=== PATIENT | female | born 1975 | race Caucasian/White ===

== ENCOUNTER 2023-01-15 12:39 | Outpatient (CLI) | payer OTHER, SELFPAY ==
[2023-01-15 13:11] LABS: Hemoglobin A1C 4.7 % (<5.7)
[2023-01-15 13:31] LABS: Free T4 Free Thyroxine 0.95 ng/mL (0.78-2.19)
[2023-01-20 03:58] LABS: FSH 130.3 mIU/mL (***); Prolactin 4.3 ng/mL (***)
[2023-01-20 08:47] LABS: Testosterone Total 11 ng/dL (2-45)
[2023-01-22 21:31] LABS: Estradiol, Ultrasensitive 11 pg/mL
== END 2023-01-15 12:40 | disposition home or self-care (01) ==
LOC: ANHLAB 12:43
PROVIDERS: Visit Provider Obstetrics & Gynecology
DX: R53.83 Other fatigue (principal)
CPT/HCPCS: 36415; 82670; 83001; 83036; 84146; 84403; 84439; 84443

== ENCOUNTER 2023-01-21 11:50 | Outpatient (CLI) | payer OTHER, SELFPAY ==
[2023-01-25 03:38] LABS: CA-125 6 U/mL (<35)
[2023-01-26 04:54] LABS: Triiodothyronine T3 Free 3.7 pg/mL (2.3-4.2)
== END 2023-01-21 11:51 | disposition home or self-care (01) ==
LOC: ANHLAB 11:54
PROVIDERS: Referring Provider Student in an Organized Health Care Education/Training Program; Visit Provider Obstetrics & Gynecology
DX: R53.83 Other fatigue (principal); R79.89 Other specified abnormal findings of blood chemistry
CPT/HCPCS: 36415; 84481; 86304

== ENCOUNTER 2023-03-15 08:07 | Outpatient (CLI) | payer OTHER, SELFPAY ==
[2023-03-15 10:25] LABS: Hematocrit 41.2 % (37.0-47.0); Hemoglobin 13.9 g/dL (12.0-15.0); Mean Corpuscular HGB Conc 33.7 g/dl (32-36); Mean Corpuscular Hemoglobin 32.4 pg (26-34); Mean Platelet Volume 9.8 fl (7.4-10.4); Platelet Count Result 211 k/mm3 (150-375); Red Blood Count 4.29 M/mm3 (4.2-5.4); Red Cell Distribution Width 12.3 % (11.5-14.5); White Blood Count 6.5 K/mm3 (4.5-10.0)
== END 2023-03-15 08:08 | disposition home or self-care (01) ==
PROVIDERS: Visit Provider Obstetrics & Gynecology
DX: D25.9 Leiomyoma of uterus, unspecified (principal); Z01.818 Encounter for other preprocedural examination
CPT/HCPCS: 36415; 85027; 86850; 86900; 86901

== ENCOUNTER 2023-03-17 00:47 | Day surgery (SDC) | payer OTHER, SELFPAY ==
--- NOTE | 2023-03-14 10:53 | PC.NURSE ---
Report to the Outpatient Waiting Room, entrance under the green pavilion located off [facility], at time __0730 on date 03/17/23 . Planned Procedure Time: _929 . Time changes happen often and if your time is changed the preop area will call you the afternoon before. - You and your visitor will be asked to self-screen and do not enter if you have any COVID symptoms. - A mask is optional within the hospital at this time. Patients may have clear liquids (water, carbonated beverages, clear teas, apple juice) until 3 hours prior to surgery with a maximum of 20 ounces. - No food from midnight until time of surgery - Infants may have breast milk until 4 hours before surgery, formula 6 hours prior to surgery. - Children will be allowed to drink immediately following surgery. If applicable, please bring a bottle or sippy cup to assist with drinking. Juice, water, soda, and popsicles are readily available. For infants on formula, please bring formula the day of surgery. Pacifiers are allowed. Take the following medications with a SIP of water the morning of surgery: NONE DO NOT STOP ANY OF YOUR OTHER PRESCRIPTION MEDICATIONS PRIOR TO SURGERY ?EXCEPT THE FOLLOWING Medications to discontinue per physician NONE Date to take last dose Please no make-up, nail chinese, hairspray, perfume, deodorant, or body powder the day of surgery. No jewelry (including any body piercings) or valuables the day of surgery, leave them at home. Please take a shower or bath the night before, or the morning of, surgery with an antibacterial soap. Wear comfortable, loose fitting clothing. Children are encouraged to wear pajamas. - Jewelry must be removed prior to entering the operating room. Rings and piercings that are not removed may be cut off. - The hospital will not accept responsibility for valuables. - Please leave all valuables, including medications, at home the day of surgery. If you are going home after surgery, a licensed ice delivery driver must drive you home. - NO public transportation without another adult if you receive anesthesia. - We recommend that an adult stay with you for 24 hours following discharge. - We also recommend that you do not drive, make important decision, drink alcoholic beverages, or take any drugs that were not prescribed by your health care provider for at least 24 hours after your discharge time. Follow any additional instructions given to you from your surgeon. If you or anyone in your household have experienced Covid symptoms in the past week, please notify your surgeon or the nurse liaison at the phone number below for possible testing. Telephone instructions given to ___PATIENT and asked if any additional questions and then verbalized understanding. Patient advised to call surgeon office or pre surgery nurse liaison [phone] if any additional questions.
[2023-03-14 11:40] VITALS: BMI 26.5
--- NOTE | 2023-03-14 16:28 | PM.IMHP ---
H&P: HPI History of Present Illness Date/Time: 03/14/23 16:28 47-year-old 2 para 2000 female presents with complaints of pelvic pain as well as hip and lower back pain. Also states that these are worse with activity and also during those times feels pressure and falling other tissue. the symptoms do occur mostly while she is at work where she does a lot of lifting and carrying. Pelvic ultrasound reveals mildly enlarged uterus and we also 2 left ovarian cysts of for an 3cm. These do appear to be simple cysts and no other significant abnormalities are noted though her uterus is generally enlarged consistent with early fibroid changes though there were no specific fibroids noted. She has had a history of endometrial ablation which has worked reasonably well for her for a period of time but she is beginning have some bleeding now and again the significant amount of discomfort. We have discussed potential medical management though she declines and desires definitive therapy in the form of hysterectomy with bilateral salpingectomy and right ovarian preservation. She does have cysts on the left ovary and significant amount of discomfort on the left side and therefore desires to have the left ovary removed. Chief Complaint: Pelvic pain Review of Systems Review of Systems: All systems reviewed & are unremarkable except as noted in HPI and below PMFSH Past Medical History Medical History Screening mammogram, encounter for Surgical History Surgical History H/O colonoscopy x 2 History of gynecologic surgery (05/12/17) hscope d&c/Novasure endometrial ablation--secretory phase endometrium History of tubal ligation Family History Family History Mother Hypertension Cerebrovascular accident Alcoholism Father Malignant neoplasm of lung Grandparent Acute myocardial infarction maternal grandmother Social History Social History Smoking status: Never smoker Tobacco type: cigarettes Alcohol intake: current Alcohol use details: 5 x year Substance use: current Substance use type: marijuana Other substance usage details: daily Last use: 03/14/23 Living arrangements: with family Additional living arrangements comments: Occupation/Education: occupation 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 Gender identity (if verbalized by the patient): Female Sexual Orientation (if Verbalized by the Patient): Straight or Heterosexual Spiritual care concerns: No Meds Home Medications and Allergies Home Medications Medication Instructions Recorded Confirmed Type No Home Medications 03/14/23 03/14/23 History Allergies Allergy/AdvReac Type Severity Reaction Status Date / Time No Known Allergies Allergy Verified 03/14/23 10:40 Exam Const: General: cooperative and healthy appearing Resp: Effort & Inspection: normal respiratory effort Auscultation: clear to auscultation bilaterally Cardio: Rate: regular rate Rhythm: regular rhythm GI: Inspection: normal to inspection Auscultation: normal bowel sounds : External Female Exam: normal external appearance Speculum Exam - Vagina: normal appearance of the vagina Speculum Exam - Cervix: normal appearance of the cervix Bimanual exam- vagina & uterus: enlarged ( mildly enlarged) Bimanual Exam- Adnexa, other: normal adnexae Assessment and Plan Assessment and plan (1) Pelvic pain: Code(s): R10.2 - Pelvic and perineal pain Status: Acute (2) Uterine fibroid: Code(s): D25.9 - Leiomyoma of uterus, unspecified Status: Acute (3) Adnexal cyst: Code(s): N94.9 - Unspecified condition associated with female genital organs and menstrual cycle Status: Acute
[2023-03-17] VITALS (12 sets, daily range): BP systolic 103–123; BP diastolic 60–82; PULSE 62–84; RESP 12–18; TEMP 36.5–37.1; O2SAT 89–100
--- NOTE | 2023-03-17 07:34 | P.PNAN_ITS ---
Anes - Initial Pre Proc Eval Procedure: Operation Date: 03/17/23 10:30 Proposed Procedures p Robotic Assisted Total Laparoscopic Hysterectomy with Bilateral Salpingectomy, Left Oophorectomy - Tiburcio Chan MD Date/Time: 03/17/23 07:34 Surgeon: Tiburcio Chan MD Pre Op Diagnosis: uterine fibroid, pelvic pain Patient Data Age: 47 Gender: F Height: 1.57 m Weight: 65.8 kg Allergies Allergy/AdvReac Type Severity Reaction Status Date / Time No Known Allergies Allergy Verified 03/17/23 08:56 Home Medications Medication Instructions Recorded Confirmed Type No Home Medications 03/14/23 03/14/23 History Patient hx anesthesia problems: none Family hx anesthesia problems: none Results Review: All pre-operative results and documents have been reviewed as part of the pre- operative evaluation. [facility] Past Medical History Medical History (Updated 03/17/23 @ 07:35 by Faisal Pavon MD) Screening mammogram, encounter for Uterine fibroid Surgical History Surgical History H/O colonoscopy x 2 History of gynecologic surgery (05/12/17) hscope d&c/Novasure endometrial ablation--secretory phase endometrium History of tubal ligation Family History Family History Mother Hypertension Cerebrovascular accident Alcoholism Father Malignant neoplasm of lung Grandparent Acute myocardial infarction maternal grandmother Social History Social History Smoking status: Never smoker Tobacco type: cigarettes Alcohol intake: current Alcohol use details: 5 x year Substance use: current Substance use type: marijuana Other substance usage details: daily Last use: 03/14/23 Living arrangements: with family Additional living arrangements comments: Occupation/Education: occupation 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 Gender identity (if verbalized by the patient): Female Sexual Orientation (if Verbalized by the Patient): Straight or Heterosexual Spiritual care concerns: No Anes - Eval Final PreProcedure Day of Procedure 03/17/23 07:34 Patient weight: overweight Heart: regular rate and rhythm Lungs: clear to auscultation and normal air movement Airway: Mallampati scale class II Neurological: alert and oriented Last oral intake: >/= 8 hours ASA classification: II Emergent: no Anesthetic plan: proceed Anesthesia type and monitoring: general ETT Results Review: All pre-operative results and documents have been reviewed as part of the pre- operative evaluation. Informed Consent: The patient's anesthetic plan and its attendant risks and benefits were discussed with the patient/family/POA. Questions were solicited and answers provided to the satisfaction of the patient/family/POA.
[2023-03-17] MEDS: ACETAMINOPHEN 500 MG TABLET 1000 MG PO (09:05)
[2023-03-17] MEDS: KETOROLAC 15 MG/ML VIAL (*BKC) IV PUSH (09:21)
[2023-03-17] MEDS: LACTATED RINGERS 1,000 ML 30 ML IV CONT ×2 (09:22→12:19)
[2023-03-17] MEDS: SCOPOLAMINE 1.5 MG PATCH TRANSDERM (09:24)
--- NOTE | 2023-03-17 09:49 | WPDHPUPDATE1 ---
History and Physical Update Update Date/Time: 03/17/23 09:49 History and Physical has been reviewed, including an updated exam of the patient. There are NO changes in the patient's condition. Risks, benefits, and alternatives have been discussed and questions answered. Patient agrees to proceed with procedure.
[2023-03-17] MEDS: ceFAZolin 2 GM/D5W 50 ML 2 GM/50 ML BAG IVPB (10:27)
--- NOTE | 2023-03-17 11:55 | P.OP_ITS ---
Procedure Note - Detailed Date of Procedure 03/17/23 Pre-op Diagnosis 1. Pelvic pain 2. Uterine fibroid 3. Left adnexal mass Post-op Diagnosis Same Procedure Performed 1. Robotic assisted total laparoscopic hysterectomy 2. Right salpingectomy 3. Left salpingo oophorectomy Surgeon Tiburcio Chan MD Anesthesia General Findings 1. Enlarged globular uterus 2. Evidence of prior partial bilateral salpingectomy 3. Left ovarian cysts x2 Description of Procedure Patient prepped and draped usual manner for this procedure. Cervical instruments were placed for uterine mobility throughout the case. Abdominal trocar sites were then marked and trocars were placed under direct visualization. The instruments were then attached to the Adpoints system and instruments were also placed under direct visualization. At this point the surgeon moved to the console and findings were noted as above. The left infundibulopelvic ligament cauterized and cut to free up the vascularity of the left ovary. The left ovary was then removed with an Endo- Catch bag with the remaining left fallopian tube as well. Right mesial salpinx was cauterized and cut to allow the right fallopian tube to be removed. Round ligament was as cauterized and cut bilaterally and bladder flap developed without difficulty. Right utero-ovarian ligament was cauterized and cut to free the ovary from the uterus. Posterior leaf the broad ligament then incised to allow the uterine vessels be skeletonized, once this was done they were cauterized and cut without difficulty. At this point the anterior colpotomy incision was made carried circumferentially to separate the cervix from the vagi na. Uterus was delivered into the vagina. Cuff was then closed using V lock suture from the right angle to the midline in the left angle midline with good approximation hemostasis noted. Irrigation was undertaken with no significant bleeding. Naomi was then placed empirically over the vaginal cuff and the other edges. Gas was allowed to escape incisions approximated using 4-0 Monocryl after the trocars removed and the patient was sent to recovery room in stable condition. Estimated Blood Loss 100 Drains No Packing No Pathology Yes Complications No immediate complications Condition Stable Disposition PACU [facility] Billing Surgery - Charge Forward: Surgery Billing
[2023-03-17] MEDS: fentaNYL CITRATE INJ (*CRX) 100 MCG/2 ML VIAL 25 MCG IV PUSH ×2 (12:45→12:48)
[2023-03-17] MEDS: ONDANSETRON INJ 4 MG/2 ML VIAL IV PUSH (12:50)
--- NOTE | 2023-03-17 13:34 | ADMGEN ---
This patient, Rivka Oh, was admitted to OB 2nd Floor Room 278-00. Patient/family oriented to hospital policies and general routines including ID bracelet, bed and alarms, visiting hours, pain management, procedures, bathroom and other care routines, personal items, smoking policy, room service/diet, and visiting hours. Information on how to activate the Rapid Response Team has been discussed. Patient/Family are encouraged to report perceived risks to care and to ask questions if they do not understand what they are told or what they should do.
[2023-03-17] MEDS: DEXTROSE 5%/0.45% SOD CHL 1,000 ML 125 ML IV CONT (13:55)
[2023-03-17] MEDS: MORPHINE SULFATE (*CRX) 4 MG/ML INJ IV PUSH (13:56)
[2023-03-17] MEDS: PROPARACAINE HCL 0.5% 15 ML OPHTH SOLN 1 DROP EACH EYE (15:53)
[2023-03-17] MEDS: DICLOFENAC SODIUM 0.1% OPHTH SOLN 2.5 ML BOTTLE 1 DROP EACH EYE (15:53)
[2023-03-17] MEDS: ARTIFICIAL TEARS OPHTH SOLN 15 ML BOTTLE 1 DROP EACH EYE (15:53)
[2023-03-17] MEDS: IBUPROFEN 600 MG TABLET PO (18:47)
[2023-03-18 00:20] VITALS: PULSE 77; RESP 18; O2SAT 97
[2023-03-18] MEDS: DICLOFENAC SODIUM 0.1% OPHTH SOLN 2.5 ML BOTTLE 1 DROP EACH EYE (00:22)
[2023-03-18] MEDS: IBUPROFEN 600 MG TABLET PO ×2 (00:23→05:26)
[2023-03-18] MEDS: HYDROcodone/acetaminophen (*CRX) 10-325 MG TABLET 1 TAB PO ×3 (00:31→08:37)
[2023-03-18 05:00] VITALS: BP 112/71; PULSE 77; RESP 18; TEMP 36.6; O2SAT 98
[2023-03-18 05:57] LABS: Basophils Percent Auto 0.1 % (0.2-1.2); Eosinophils Percent Auto 0.1 % (0-4.4); Hematocrit 34.7 % (37.0-47.0); Hemoglobin 11.7 g/dL (12.0-15.0); Immature Granulocyte Absolute 0.04 K/mm3 (0.00-0.031); Immature Granulocyte Percent A 0.4 % (0-0.5); Lymphocytes Absolute Auto 1.44 K/mm3 (0.9-3.2); Lymphocytes Percent Auto 14.3 % (18.3-44.2); Mean Corpuscular HGB Conc 33.7 g/dl (32-36); Mean Corpuscular Hemoglobin 31.8 pg (26-34); Mean Corpuscular Volume 94.3 fl (80-100); Mean Platelet Volume 9.7 fl (7.4-10.4); Monocytes Absolute Auto 0.9 K/mm3 (0.1-0.6); Monocytes Percent Auto 9.3 % (2.6-8.5); Neutrophils Absolute Auto 7.6 K/mm3 (1.3-6.7); Neutrophils Percent Auto 75.8 % (45.5-73.1); Platelet Count Result 192 k/mm3 (150-375); Red Blood Count 3.68 M/mm3 (4.2-5.4)
[2023-03-18 08:40] VITALS: PULSE 77; RESP 18; O2SAT 99
[2023-03-18 08:45] VITALS: BP 96/60; PULSE 77; RESP 18; TEMP 37.4; O2SAT 99
--- NOTE | 2023-03-18 12:57 | WPDANESPN ---
Anes - Prog Note Post-Op Date/Time: 03/18/23 12:57 Vital Signs: Last Vital Signs Temp 37.4 C 03/18/23 08:45 Pulse 77 03/18/23 08:45 Resp 18 03/18/23 08:45 BP 96/60 L 03/18/23 08:45 Pulse Ox 99 03/18/23 08:45 O2 Del Method Room Air 03/18/23 08:40 O2 Flow Rate 2 03/17/23 16:20 Pain Score (VAS): 1 I/O: Intake & Output 03/17/23 03/18/23 03/18/23 23:59 07:59 15:59 Intake Total 570 440 240 Output Total 350 750 Balance 220 -310 240 Laboratory Tests 03/18/23 05:17 03/18/23 05:17 WBC 10.0 RBC 3.68 L Hgb 11.7 L Hct 34.7 L MCV 94.3 MCH 31.8 MCHC 33.7 RDW 12.0 Plt Count 192 MPV 9.7 Immature Gran % (Auto) 0.4 Neut % (Auto) 75.8 H Lymph % (Auto) 14.3 L [place] % (Auto) 9.3 H Eos % (Auto) 0.1 Baso % (Auto) 0.1 L Lymph # (Auto) 1.44 [place] # (Auto) 0.9 H Eos # (Auto) 0.0 Baso # (Auto) 0.0 Abs Immat Gran (auto) 0.04 H Absolute Neuts (auto) 7.6 H Absolute Nucleated RBC 0.0 Nucleated RBC % 0.0 Patient Feedback: Patient satisfied with anesthetic care.
== END 2023-03-18 10:20 | disposition home or self-care (01) ==
LOC: ANHSURGERY 09:30 → ANHOB2 17:32
PROVIDERS: Visit Provider Obstetrics & Gynecology
PROC: (CPT 58571; principal; 2023-03-17 10:30)
DX: N83.292 Other ovarian cyst, left side (principal); N87.9 Dysplasia of cervix uteri, unspecified; R10.2 Pelvic and perineal pain; F12.90 Cannabis use, unspecified, uncomplicated
CPT/HCPCS: 58571; S2900; 36415; 85025; 85027; 86850; 86900; 86901; 88307; A9270; J0690; J1100; J1170; J1885; J2250; J2270; J2405; J2704; J2710; J3010; J7030; J7120

== ENCOUNTER 2023-06-18 08:17 | Outpatient (CLI) | payer OTHER, SELFPAY ==
--- NOTE | ~2023-06-18 | MM_ITS ---
EXAMINATION: MM screening maite BI w abdiel HISTORY: Screening TECHNIQUE: Craniocaudal and mediolateral oblique 3-D tomosynthesis images were obtained and synthetic 2-D images were generated. CAD analysis was submitted and interpreted. COMPARISON: No prior mammogram is available for comparison at this institution. BREAST PARENCHYMAL COMPOSITION: Breast composed of scattered areas of fibroglandular density FINDINGS: There are masses in the upper central right breast posteriorly in the upper outer quadrant of the left breast posteriorly. There are no suspicious calcifications or architectural distortion. IMPRESSION: 1. Bilateral breast masses. 2. Recommend comparison to previous outside mammograms. If prior mammograms are not available, additi onal spot compression views and possible ultrasound recommended. BI-RADS Category 0: Incomplete: Needs additional imaging evaluation. Reviewed, dictated and finalized at location A. IMPRESSION: 1. Bilateral breast masses. 2. Recommend comparison to previous outside mammograms. If prior mammograms are not available, additional spot compression views and possible ultrasound recom mended. BI-RADS Category 0: Incomplete: Needs additional imaging evaluation.
== END 2023-06-18 08:18 | disposition home or self-care (01) ==
PROVIDERS: PCP Internal Medicine; Visit Provider Obstetrics & Gynecology
DX: Z12.31 Encounter for screening mammogram for malignant neoplasm of breast (principal); R53.83 Other fatigue; N63.20 Unspecified lump in the left breast, unspecified quadrant; N63.10 Unspecified lump in the right breast, unspecified quadrant
CPT/HCPCS: 77063; 77067

== ENCOUNTER 2023-07-13 10:57 | Outpatient (CLI) | payer OTHER, SELFPAY ==
--- NOTE | ~2023-07-13 | MMUS_ITS ---
EXAMINATION: MM diagnostic maite BI w abdiel, US breast BI complete HISTORY: New bilateral breast nodules in upper central right breast and upper outer quadrant left eliane ast reported on 06/18/2023 bilateral screening mammogram TECHNIQUE: Additional 3-D tomosynthesis images of both breasts were performed and synthetic 2-D image s were generated. CAD analysis was submitted and interpreted. High resolution complete bilateral carla st ultrasound examination including all 4 quadrants and subareolar areas was performed. COMPARISON: 06/18/2023 bilateral screening mammogram FINDINGS: MAMMOGRAPHIC FINDINGS: Approximately 6 mm circumscribed low-density opacity is noted in the posterior mid outer left breast. Low-density circumscribed posterior inner aspect of the upper inner quadrant of the right breast. ULTRASOUND: No suspicious mass or shadowing of either breast is detected. The following benign findin gs are noted: Right breast: 12:00 2 cm from nipple: 3.2 mm circumscribed low-density opacity without internal vascularity, with t hrough transmission, benign in appearance Left breast: 12:00 1 cm from nipple: 3 mm circumscribed sonolucency , benign in appearance 12:00 3 cm from nipple: 3 mm circumscribed sonolucency, benign in appearance 2:00 5 cm from nipple: 4 x 3.5 x 4.7 mm circumscribed sonolucency without internal vascularity or pos terior shadowing 2:00 4 cm from nipple: 5.6 x 6.4 mm circumscribed sonolucency with through transmission posterior enh ancement consistent with simple cyst IMPRESSION: 1. Benign findings 2. Routine annual mammographic screening is recommended BI-RADS Category 2: Benign finding(s). Reviewed, dictated and finalized at location A. IMPRESSION: 1. Benign findings 2. Routine annual mammographic screening is recommended BI-RADS Category 2: Benign finding(s).
== END 2023-07-13 10:58 | disposition home or self-care (01) ==
LOC: ANHIMG 10:58
PROVIDERS: PCP Internal Medicine; Visit Provider Obstetrics & Gynecology
DX: N63.10 Unspecified lump in the right breast, unspecified quadrant (principal)
CPT/HCPCS: 76641; 77062; 77066; G0279

== ENCOUNTER 2024-07-24 12:15 | Outpatient (CLI) | payer OTHER, SELFPAY ==
[2024-07-24 13:48] LABS: Basophils Absolute Auto 0.1 K/mm3 (0.0-0.1); Basophils Percent Auto 0.5 % (0.2-1.2); Eosinophils Absolute Auto 0.1 K/mm3 (0-0.3); Eosinophils Percent Auto 0.8 % (0-4.4); Hematocrit 42.6 % (37.0-47.0); Hemoglobin 14.5 g/dL (12.0-15.0); Immature Granulocyte Absolute 0.06 K/mm3 (0.00-0.031); Immature Granulocyte Percent A 0.6 % (0-0.5); Lymphocytes Absolute Auto 1.69 K/mm3 (0.9-3.2); Lymphocytes Percent Auto 15.7 % (18.3-44.2); Mean Corpuscular Hemoglobin 32.2 pg (26-34); Mean Corpuscular Volume 94.5 fl (80-100); Mean Platelet Volume 9.6 fl (7.4-10.4); Monocytes Absolute Auto 0.5 K/mm3 (0.1-0.6); Monocytes Percent Auto 4.6 % (2.6-8.5); Neutrophils Absolute Auto 8.4 K/mm3 (1.3-6.7); Neutrophils Percent Auto 77.8 % (45.5-73.1); Platelet Count Result 209 k/mm3 (150-375); Red Blood Count 4.51 M/mm3 (4.2-5.4); Red Cell Distribution Width 12.1 % (11.5-14.5); White Blood Count 10.8 K/mm3 (4.5-10.0)
[2024-07-24 14:42] LABS: Alanine Aminotransferase 27 U/L (6-35); Albumin Level 4.6 g/dL (3.5-5.1); Alkaline Phosphatase 29 U/L (38-126); Anion Gap 8 mmol/L (4-12); Aspartate Amino Transferase 27 U/L (14-36); Bilirubin,Total 0.5 mg/dL (0.2-1.3); Blood Urea Nitrogen 13 mg/dL (7-17); Calcium 9.7 mg/dL (8.4-10.2); Carbon Dioxide 32 mmol/L (22-30); Chloride 102 mmol/L (98-107); Cholesterol 220 mg/dL (0-200); Estimated Glomerular Filt Rate > 60; Glucose 96 mg/dL (65-110); HDL Direct 73 mg/dL; Potassium 3.6 mmol/L (3.4-5.0); Sodium 142 mmol/L (137-145); Triglycerides 104 mg/dL (<150)
[2024-07-24 14:54] LABS: LDL Cholesterol Direct 113 mg/dL
[2024-07-24 15:06] LABS: Free T4 Free Thyroxine 0.77 ng/mL (0.78-2.19)
[2024-07-24 15:12] LABS: Thyroid Stimulating Hormone 0.598 uIU/mL (0.465-4.680)
== END 2024-07-24 12:16 | disposition home or self-care (01) ==
LOC: ANHLAB 12:16
PROVIDERS: PCP Nurse Practitioner Family; Visit Provider Nurse Practitioner Family
DX: E05.90 Thyrotoxicosis, unspecified without thyrotoxic crisis or storm (principal); M25.552 Pain in left hip; N95.1 Menopausal and female climacteric states; R53.83 Other fatigue; Z13.220 Encounter for screening for lipoid disorders
CPT/HCPCS: 36415; 80053; 80061; 82607; 84439; 84443; 85025

== ENCOUNTER 2024-08-17 13:40 | Outpatient (CLI) | payer OTHER, SELFPAY ==
--- NOTE | ~2024-08-17 | MM_ITS ---
EXAMINATION: MM screening maite BI w abdiel HISTORY: Screening mammogram TECHNIQUE: Craniocaudal and mediolateral oblique 3-D tomosynthesis images were obtained and synthetic 2-D images were generated. CAD analysis was submitted and interpreted. COMPARISON: 06/18/2023, 12/21/2021 BREAST PARENCHYMAL COMPOSITION:Not Dense. There are scattered areas of fibroglandular density. FINDINGS: Stable low-density breast masses, shown on prior exam to represent simple cysts. No suspici ous mass, calcification, or architectural distortion are identified in either breast to suggest malig andria. There has been no suspicious interval change. IMPRESSION: No mammographic evidence of malignancy. Recommend routine screening mammography in one year. BI-RADS Category 2: Benign finding(s). Reviewed, dictated and finalized at [facility]. 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
== END 2024-08-17 13:41 | disposition home or self-care (01) ==
LOC: CHSIMG 13:43
PROVIDERS: PCP Nurse Practitioner Family; Visit Provider Obstetrics & Gynecology
DX: Z12.31 Encounter for screening mammogram for malignant neoplasm of breast (principal)
CPT/HCPCS: 77063; 77067

== ENCOUNTER 2024-08-24 14:45 | Outpatient (CLI) | payer OTHER, SELFPAY ==
--- NOTE | ~2024-08-24 | US_ITS ---
EXAMINATION: US thyroid DATE: 08/24/2024 15:36 INDICATION: Dysphagia TECHNIQUE: Multiple ultrasound images of the thyroid were obtained. COMPARISON: None. FINDINGS: The right thyroid lobe measures 5.3 x 1.7 x 1.5 cm. The left thyroid lobe measures 5.0 x 1.8 x 1.5 c m. Thyroid isthmus measures 4 mm in thickness. No discrete nodules identified. There is normal echote xture, echogenicity and vascular flow throughout the thyroid gland. IMPRESSION: 1. Normal thyroid. Reviewed, dictated and finalized at location B. 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 Normal thyroid.
== END 2024-08-24 14:46 | disposition home or self-care (01) ==
PROVIDERS: PCP Nurse Practitioner Family; Visit Provider Nurse Practitioner Family
DX: E05.90 Thyrotoxicosis, unspecified without thyrotoxic crisis or storm (principal); R53.83 Other fatigue; N95.1 Menopausal and female climacteric states; R13.10 Dysphagia, unspecified; M25.552 Pain in left hip
CPT/HCPCS: 76536

== ENCOUNTER 2025-08-19 07:39 | Outpatient (CLI) | payer OTHER, SELFPAY ==
--- NOTE | ~2025-08-19 | MM_ITS ---
EXAMINATION: MM screening maite BI w abdiel HISTORY: Screening TECHNIQUE: Craniocaudal and mediolateral oblique 3-D tomosynthesis images were obtained and synthetic 2-D images were generated. CAD analysis was submitted and interpreted. COMPARISON: Comparison to multiple prior studies sequentially, with oldest reviewed study dated , 12/21/2021 BREAST PARENCHYMAL COMPOSITION: There are scattered areas of fibroglandular density. FINDINGS: There is no evidence of suspicious mass, calcification, or architectural distortion to suggest malignancy in either breast. IMPRESSION: 1. No mammographic evidence of malignancy. 2. Recommend routine screening mammography in one year. BI-RADS Category 1: Negative Reviewed, dictated and finalized at location B. OR MAP
== END 2025-08-19 07:40 | disposition home or self-care (01) ==
PROVIDERS: PCP Nurse Practitioner Family; Visit Provider Obstetrics & Gynecology
DX: Z12.31 Encounter for screening mammogram for malignant neoplasm of breast (principal)
CPT/HCPCS: 77063; 77067